=== PATIENT | female | born 1975 ===

== ENCOUNTER 2016-06-25 01:40 | Inpatient (IN) | payer MEDICAID ==
--- NOTE | 2016-06-25 01:51 | OBHP ---
Datetime: 03/11/2016 17:57 IP Adm Impression: , intrauterine ; No Active Labor; Intact Membranes IP Admit Plan: Observation/Evaluation; Discharge home Admit Comment, IP Provider: S: 40F @22.5wks pt reports crampy-type pain along lower abd associa polina with frequency and burning on urination, but denies fevers/diarrhea, chills, and took nothing ofr pain at home. She denies any ctx/VB/LoF, FM+. Last sex 2 months ago. Reports only drinking 3-4 bot tles of water a day. O: VE- closed/thick/high A/P: IUP @ 22.5wks signs and symptoms likely UTI and inadequate hydration. - UA, UCx - FHT/toco continuous - 2L LR bolus - Likely d/c home +/- antibiotics - d/w Dr Eligio Howell, Mireya DESAI I saw and examined patient at presentation. Agree with above plan. Eligio Pelvic Type - PN: Not Done Extremities - PN: Normal Abdomen - PN: Normal Back - PN: Not Done Breast - PN: Not Done Lungs - PN: Normal Heart - PN: Normal Thyroid - PN: Normal Neurologic - PN: Normal HEENT - PN: Normal General - PN: Normal FHR - Baseline A Provider: 125 Membranes, Provider: Intact Contraction Comments Provider: occ IP Hx Assessment: The History has been Reviewed and is Current EGA AdmitDate IP: 22.5 Vital Signs Provider: Reviewed IP Chief Complaint: Signs/symptoms UTI NICHD Variability Prov Fetus A: Moderate 6-25bpm FHR Category Provider Fetus A: Category I NICHD Decel Fetus A IP Provider: None Dilatation, Provider: closed Effacement, Provider: thick Station, Provider: high Genitourinary Exam: Normal DTRs - PN: Not Done
[2016-06-25] MEDS ORDERED: Lactated Ringer's 1,000 ML IV SCH ×3 (02:45→07:30)
[2016-06-25 03:18] LABS: BASO % 0.6 % (0.0-2.0); EOS % 0.6 % (0.0-4.0); HEMATOCRIT 33.7 % (34.0-47.0); LYMPH # 1.3 K/uL (1.0-4.3); LYMPH % 28.2 % (20.0-40.0); MEAN CORPUSCULAR HEMOGLOBIN 29.8 pg (27.0-31.0); MEAN CORPUSCULAR HGB CONC 34.2 g/dL (33.0-37.0); MEAN PLATELET VOLUME 8.7 fl (7.2-11.7); MONO # 0.5 K/uL (0.0-0.8); MONO % 11.2 % (0.0-10.0); NEUT # 2.8 K/uL (1.8-7.0); NEUT % 59.4 % (50.0-75.0); NRBC % 0.1 % (0.0-0.0); RED CELL DISTRIBUTION WIDTH 13.5 % (11.5-14.5); WHITE BLOOD COUNT 4.7 K/uL (4.8-10.8)
[2016-06-25 03:25] LABS: MEAN CELL VOLUME 87.2 fl (81.0-99.0)
[2016-06-25 07:44] VITALS: BMI 29.2
[2016-06-25 08:15] VITALS: BP 116/86; PULSE 81; RESP 12; TEMP 98.1; O2SAT 99
[2016-06-25] MEDS ORDERED: Oxytocin 30 units/LR 500ML 500 ML IV ONE (12:14)
--- NOTE | 2016-06-25 12:15 | OBPN ---
Datetime: 06/25/2016 12:12 IP Progress Impression: Reassuring heart rate IP Procedures: Scalp Electrode IP Progress Plan: Augmentation Contraction Comments Provider: q5min FHR - Baseline A Provider: 120s-130s IP Progress Note Comment: Patient without complaints. heart tracing reassuring. Start Pitocin augmentation. Maternal being and well-being reassuring at this time. Vital Signs Provider: Reviewed; Within Normal Limits NICHD Accel Fetus A IP Provider: 15X15 FHR Category Provider Fetus A: Category I NICHD Variability Prov Fetus A: Moderate 6-25bpm Dilatation, Provider: 1 Effacement, Provider: 80 Station, Provider: -1 NICHD Decel Fetus A IP Provider: None Datetime: 06/25/2016 03:11 Nitrazine Provider: Positive Membranes, Provider: Ruptured Amniotic Fluid Color, Provider: blood tinged
[2016-06-25] MEDS ORDERED: Bupivacaine HCl 0.25% PF (10 ml) Inj ONE (12:34)
[2016-06-25] MEDS ORDERED: Fentanyl/Bupivacaine HCl 250 ML EPI ONE (12:34)
[2016-06-25] MEDS ORDERED: Lidocaine 1% Inj (20ml) ONE (17:08)
[2016-06-25] MEDS ORDERED: Oxytocin 20 units in LR 0 ML IV ONE (17:09)
--- NOTE | 2016-06-25 17:18 | OBPN ---
Datetime: 06/25/2016 17:14 IP Progress Impression: Normal progression of labor; Reassuring heart rate IP Informed Consent Obtain: Vaginal Delivery IP Procedures: Sterile Vag Exam IP Progress Plan: Continue present management Contraction Comments Provider: q2min FHR - Baseline A Provider: 120s-130s IP Progress Note Comment: Progressing well. Anticipate . Both MWB/FWB reassuring at this time. Vital Signs Provider: Reviewed; Within Normal Limits NICHD Accel Fetus A IP Provider: 15X15 FHR Category Provider Fetus A: Category I NICHD Variability Prov Fetus A: Moderate 6-25bpm Dilatation, Provider: 10 Effacement, Provider: 100 Station, Provider: 2 NICHD Decel Fetus A IP Provider: None
[2016-06-25] MEDS ORDERED: Oxycodone/Acetaminophen 5/325 mg Tab PO PRN ×2 (18:01→20:17)
[2016-06-25] MEDS ORDERED: Benzocaine/Menthol SPRAY TOP PRN ×2 (18:01→20:17)
--- NOTE | 2016-06-25 18:17 | OBDS ---
DELIVERY PERSONNEL Delivery Doctor: Claire Del Valle MD Phlebotomy Director: Missy Alvarez RN Anesthesiologist: Tsering Vuong MD Resident: Magdalena Webb MATERNAL INFORMATION Delivery Anesthesia: Epidural Medications in Delivery: Pitocin Estimated Blood Loss (ml): 200 Placenta Cultured: No Maternal Complications: None Provider Comments: Normal spontaneous vaginal delivery. Patient delivered viable male with Apgars of 9 and 9 at [address]ta delivered spontaneously. Infant delivered via BEE position. Laceration repaired, as above. Uterus firm and appropriately hemostatic following delivery. patient tolerated delivery and repair well. No complications. Estimated blood loss 200 mL. LABOR SUMMARY EDC: 07/10/2016 00:00 No. Babies in Womb: 1 Attempted: No Labor Anesthesia: Epidural LABOR INFORMATION Reason for Induction: Not Applicable Onset of Labor: 06/25/2016 12:00 Complete Dilatation: 06/25/2016 17:10 Cervical Ripening Agents: Cytotec @ Oxytocin: Augmentation Group B Beta Strep: Negative Antibiotics # of Doses: N/A Antibiotics Time of Last Dose: N/A Steroids Given: None Reason Steroids Not Administered: Not Applicable MEMBRANES Membranes Rupture Method: Spontaneous Rupture of Membranes: 06/25/2016 00:40 Amniotic Fluid Color: Bloody Amniotic Fluid Amount: Small Amniotic Fluid Odor: Normal STAGES OF LABOR Stage 1 hrs: 5 Stage 1 min: 10 Stage 2 hrs: 0 Stage 2 min: 18 Stage 3 hrs: 0 Stage 3 min: 4 Total Time in Labor hrs: 5 Total Time in Labor min: 32 VAGINAL DELIVERY Episiotomy: None Laceration Extension: Second Degree Laceration Type: Perineal Laceration Repair: Yes Laceration Repair Note: Secondary midline perineal laceration. Area infiltrated with 1% lidocaine. L aceration repaired with 2. 0 Rapide without complication. Patient tolerated repair well. Initial Vag Sponge Count: 15 Final Vag Sponge Count: 15 Initial Vag Sharps Count: 1 Final Vag Sharps Count: 1 Sponge Count Correct: Yes Sharps Count Correct: Yes Count Comment: Laps 5 X-Ray Detectable Sponges 10 Instruments 15 Sharps 1 All count correct BABY A INFORMATION Infant Delivery Date/Time: 06/25/2016 17:28 Method of Delivery: Vaginal Born in Route : No : N/A Forceps: N/A Vacuum Extraction: N/A Shoulder Dystocia : No SHOULDER DYSTOCIA BABY A Infant Delivery Date/Time: 06/25/2016 17:28 PRESENTATION/POSITION BABY A Presentation: Cephalic Cephalic Presentation: Vertex Breech Presentation: N/A PLACENTA INFORMATION BABY A Placenta Delivery Time : 06/25/2016 17:32 Placenta Method of Delivery: Spontaneous Placenta Status: Delivered SCORES BABY A Heart Rate 1 min: >100 bpm Resp Effort 1 min: Good Cry Reflex Irritability 1 min: Cough or Sneeze or Pulls Away Muscle Tone 1 min: Active Motion Color 1 min: Body [place], Extremities Blue SCORE 1 MIN: 9 INFANT INFORMATION BABY A Gestational Age at Delivery: 37.6 Gestational Status: Term Infant Outcome : Liveborn Condition : Stable Sex: Male IDENTIFICATION/MEDS BABY A ID Band Number: [id number] ID Band Location: Left Leg; Left Arm Vitamin K Given : Not Given Erythromycin Given: Not Given WEIGHT/LENGTH BABY A Birthweight (gms): 3255 Infant Weight (lb): 7 Weight (oz): 3 CORD INFORMATION BABY A No. Cord Vessels: 3 Nuchal Cord : N/A Nuchal Cord Other: N/A True Knot: N/A Infant Cord pH Baby Arterial: N/A Infant Cord pH Baby Venous: N/A Cord Blood Taken: Yes Banking/Donate Info: N/A Suction: Mouth; Nose
[2016-06-26 07:23] LABS: HEMATOCRIT 32.5 % (34.0-47.0); MEAN CELL VOLUME 88.6 fl (81.0-99.0); MEAN CORPUSCULAR HEMOGLOBIN 29.2 pg (27.0-31.0); MEAN CORPUSCULAR HGB CONC 32.9 g/dL (33.0-37.0); RED CELL DISTRIBUTION WIDTH 13.5 % (11.5-14.5); WHITE BLOOD COUNT 8.3 K/uL (4.8-10.8)
--- NOTE | 2016-06-26 10:35 | OBPPN ---
Datetime: 06/26/2016 07:54 PP Pain Prov: Within normal limits PP Nausea Prov: Denies PP Flatus Prov: Yes PP BM Prov: No PP Breasts Prov: Normal PP Heart Prov: Normal PP Lungs Prov: Normal PP Abdomen/Uterus Prov: Normal PP Lochia Prov: Normal PP Vulva/Perineum Prov: Normal PP CVA Tenderness Prov: Normal PP Extremities Prov: Normal PP C/S Incision Prov: Not Applicable PP Progress Prov: Normal PP Comments Phys Exam Prov: Not acute distress No resp distress RRR, S1S2 VS WNL Abd: soft, uterus firm umb level, BS+ no calf tenderness Alert, oriented PP Impression Prov: Normal progression PP Plan Prov: Continue present management PP Progress Note Prov: PPD #1 Patient doing well on PPD1. Tolerating regular diet. +flatus, no BM, lochia = menses. OOB to bathr oom. Breast feeding, supplementing with bottle feeds. denies CP, SOB, calf pain, nausea or vomiting. O: see above A/P: day #1, normal progression -pain management: motrin -Encouraged . -Encourage Ambulation -Anticipated DC 06/27/16 Evgeny Mak PGY1 Patient was seen with the resident I agree with the encourage ambulation and regular diet motion a s needed and anticipate discharge in a.m. IP PP Procedures: None Vital Signs Provider PP: Reviewed; Within Normal Limits
--- NOTE | 2016-06-27 10:25 | OBPPN ---
Datetime: 06/27/2016 10:07 PP Pain Prov: Within normal limits PP Nausea Prov: Denies PP Flatus Prov: Yes PP BM Prov: No PP Heart Prov: Normal PP Lungs Prov: Normal PP Abdomen/Uterus Prov: Normal PP Lochia Prov: Normal PP CVA Tenderness Prov: Normal PP Extremities Prov: Normal PP C/S Incision Prov: Not Applicable PP Progress Prov: Normal PP Impression Prov: Normal progression PP Plan Prov: Continue present management PP Progress Note Prov: PPD 2 Patient doing well this AM, denies pain, tolerating PO diet, ambulating without difficulty, has fl atus, denies bowel movement, normal urine output. 15-20 min each breast. Patient has no complaints or concerns at this time. PE Cardiac: S1 S2 normal, no murmurs/rubs or gallops Lungs: CTABL Abd: bowel sounds present, uterus firm below umbilicus, mild tenderness to palpation Ext: no edema A: 40 yr on PPD 2 s/p P: -Continue present management -pain management -encouraged ambulation -encouraged adequate hydrationa and PO intake, Magdalena Nicole M.D. PGY-[address] Morrison: Patient evaluated independently and I agree with the above IP PP Procedures: None Vital Signs Provider PP: Reviewed; Within Normal Limits
[2016-06-27] MEDS ORDERED: Measles, Mumps, and Rubella Vaccine SC ONE (10:26)
--- NOTE | 2016-06-27 10:27 | OBDCSUM ---
Datetime: 06/27/2016 10:13 Discharged to, Provider: Home Follow up at, Provider: Joselin De La Rosa Disch Instr Activity: Normal activity; May be up to bathroom; May be up for meals; May Shower Disch Instr Diet: Regular Discharge Instructions, Provider: Routine instructions given Discharge Diagnosis, Provider: Term Delivered Discharge Time: 06/27/2016 12:00 Follow up in weeks, Provider: [facility] Disch Activity Restrictions: No exercising; No lifting; No sexual activity; Nothing in vagina - Inte rcourse, tampons, douche Discharge Comment, Provider: PPD 2 Patient doing well this AM, denies pain, tolerating PO diet, ambulating without difficulty, has fl atus, denies bowel movement, normal urine output. 15-20 min each breast. Patient has no complaints or concerns at this time. PE Cardiac: S1 S2 normal, no murmurs/rubs or gallops Lungs: CTABL Abd: bowel sounds present, uterus firm below umbilicus, mild tenderness to palpation Ext: no edema A: 40 yr on PPD 2 s/p P: -Discharge to home -Follow up with Joselin De La Rosa at [facility] in 6 weeks -Baby to see public health informatician in 2-3 days -Ibuprofen 600 mg PO Q6 PRN pain Magdalena Nicole M.D. PGY1 Datetime: 03/11/2016 21:14 Follow up at, Provider: OB Discharge Time: 06/27/2016 00:00 Follow up in weeks, Provider: 6 weeks
== END 2016-06-27 13:30 | disposition home or self-care (01) | DRG 372 ==
LOC: H.EROB2 01:40 → H.ERHOLD 02:44 → H.L&D 02:44 → H.OB/GYN 20:08
PROVIDERS: ADMIT Obstetrics & Gynecology Gynecology; ATTEND Obstetrics & Gynecology Gynecology
PROC: 0KQM0ZZ Repair Perineum Muscle, Open Approach (ICD-10-PCS; principal; 2016-06-25)
PROC: 10E0XZZ Delivery of Products of Conception, External Approach (ICD-10-PCS; 2016-06-25)
PROC: 4A1HXCZ Monitoring of Products of Conception, Cardiac Rate, External Approach (ICD-10-PCS; 2016-06-25)
DX: O70.1 Second degree perineal laceration during delivery (principal); O75.3 Other infection during labor; Z37.0 Single live birth; Z3A.37 37 weeks gestation of pregnancy

== ENCOUNTER 2017-12-11 10:12 | Inpatient (IN) | payer MEDICAID ==
[2017-12-08 22:56] VITALS: BMI 29.0
[2017-12-11] MEDS ORDERED: Lactated Ringer's 1,000 ML IV ONE (10:19)
[2017-12-11] MEDS ORDERED: Lactated Ringer's 1,000 ML IV SCH (10:30)
[2017-12-11] MEDS ORDERED: OXYTOCIN/0.9 % NS 20 UNIT/1,000 ML BAG IV ONE ×2 (10:31→10:32)
[2017-12-11 10:52] LABS: BASO % 0.2 % (0.0-2.0); EOS % 0.3 % (0.0-4.0); HEMOGLOBIN 12.4 g/dL (12.0-16.0); LYMPH % 15.1 % (20.0-40.0); MEAN CELL VOLUME 88.8 fl (81.0-99.0); MEAN CORPUSCULAR HGB CONC 33.7 g/dL (33.0-37.0); MEAN PLATELET VOLUME 9.3 fl (7.2-11.7); MONO # 0.4 K/uL (0.0-0.8); MONO % 6.3 % (0.0-10.0); NEUT # 5.2 K/uL (1.8-7.0); NEUT % 78.1 % (50.0-75.0); NRBC % 0.1 % (0.0-0.0); RBC 4.13 Mil/uL (3.80-5.20); RED CELL DISTRIBUTION WIDTH 13.6 % (11.5-14.5); WHITE BLOOD COUNT 6.6 K/uL (4.8-10.8)
--- NOTE | 2017-12-11 11:08 | OBHP ---
Datetime: 12/11/2017 11:03 IP Adm Impression: Term, intrauterine IP Admit Plan: Admit to unit; Initiate labor protocol Extremities - PN: Normal Abdomen - PN: Normal Back - PN: Normal Lungs - PN: Normal Heart - PN: Normal Neurologic - PN: Normal HEENT - PN: Normal General - PN: Normal FHR - Baseline A Provider: 130's Membranes, Provider: Bulging Contraction Comments Provider: irregular EGA AdmitDate IP: 38.4 Vital Signs Provider: Reviewed; Within Normal Limits IP Indication for Induction: Not Applicable IP Chief Complaint: Uterine contractions NICHD Variability Prov Fetus A: Moderate 6-25bpm NICHD Accel Fetus A IP Provider: 15X15 FHR Category Provider Fetus A: Category I NICHD Decel Fetus A IP Provider: None Dilatation, Provider: 8 Effacement, Provider: 100 Station, Provider: -1 Genitourinary Exam: Normal Datetime: 12/11/2017 10:56 Admit Comment, IP Provider: 42 yo at 38+4 wks w/ painful ctxns since 4am, also reports pink d/c, denies LOF and reports FM. FHT reactive. Pt admitted to L_D in labor. H_P dictated, "[id number]" (ES)
--- NOTE | 2017-12-11 11:08 | OBADHP ---
Datetime: 12/11/2017 11:03 Extremities - PN: Normal Abdomen - PN: Normal Back - PN: Normal Lungs - PN: Normal Heart - PN: Normal Neurologic - PN: Normal HEENT - PN: Normal General - PN: Normal FHR - Baseline A Provider: 130's Membranes, Provider: Bulging Contraction Comments Provider: irregular Vital Signs Provider: Reviewed; Within Normal Limits IP Chief Complaint: Uterine contractions NICHD Variability Prov Fetus A: Moderate 6-25bpm NICHD Accel Fetus A IP Provider: 15X15 FHR Category Provider Fetus A: Category I NICHD Decel Fetus A IP Provider: None Dilatation, Provider: 8 Effacement, Provider: 100 Station, Provider: -1 Genitourinary Exam: Normal EGA AdmitDate IP: 38.4 IP Adm Impression: Term, intrauterine IP Admit Plan: Admit to unit; Initiate labor protocol Datetime: 12/11/2017 10:56 Admit Comment, IP Provider: 42 yo at 38+4 wks w/ painful ctxns since 4am, also reports pink d/c, denies LOF and reports FM. FHT reactive. Pt admitted to L_D in labor. H_P dictated, "[id number]" (ES) Datetime: 12/08/2017 22:56 Comments, ACOG Physical Exam: General: NAD Chest: RRR, S1S2 present Lungs: CTA B/L Abdomen: Gravid , NT Ext: No pedal edema, No calf tenderness SVE: 2/50/-3, No active vaginal bleeding IP Hx Assessment: The History has been Reviewed and is Current
[2017-12-11] MEDS ORDERED: Fentanyl/Bupivacaine HCl 250 ML EPI ONE (12:14)
--- NOTE | 2017-12-11 13:33 | OBPN ---
Datetime: 12/11/2017 13:30 IP Progress Impression: Normal progression of labor IP Procedures: Artificial ROM; Sterile Vag Exam IP Progress Plan: Continue present management Membranes, Provider: Ruptured Amniotic Fluid Color, Provider: Clear Contraction Comments Provider: irregular FHR - Baseline A Provider: 120's IP Progress Note Comment: 42 at 38+4 wks in labor, s/p epidural AROM for clear fluid w/ pink d/c at 1328 FHT reassuring NICHD Accel Fetus A IP Provider: 15X15 FHR Category Provider Fetus A: Category I NICHD Variability Prov Fetus A: Moderate 6-25bpm Dilatation, Provider: 8 Effacement, Provider: 100 Station, Provider: -1 NICHD Decel Fetus A IP Provider: None; Variable Datetime: 12/11/2017 11:03 Vital Signs Provider: Reviewed; Within Normal Limits
[2017-12-11] MEDS ORDERED: Benzocaine/Menthol SPRAY TOP PRN (15:35)
[2017-12-11] MEDS ORDERED: Oxycodone/Acetaminophen 5/325 mg Tab PO PRN (15:35)
--- NOTE | 2017-12-11 16:14 | OBDS ---
DELIVERY PERSONNEL Nurse Cab Station Attendant Certified: sushila Delivery Doctor: Darnell Verde Nurse: sushila Command And Control Specialist: TONY Dee Anesthesiologist: Aniket Scientific Associate: sushila Resident: Bridgett MATERNAL INFORMATION Delivery Anesthesia: None Medications in Delivery: pitocin Estimated Blood Loss (ml): 100 Placenta Cultured: No Maternal Complications: None RN Comments: uneventful normal spontaneous delivery to baby boy; 9/9 with cord around the neck x 1 ; 2 degree lacerations repaired ; placenta delivered complete Provider Comments: Pt progressed to complete and pushed to deliver a viable male through marisol r fluid at 1524. Nuchal cord x1 reduced. Terminal meconium present. Apgars 9 and 9. Wt 3445 gms, 7#9.5. Baby placed on mother's abdomen. Cord doubly clamped and FOB cut the cord. Small second deg ree tear was repaired w/ 2-0 rapide and 3-0v. Pt and baby tolerated the procedure well. EBL 150mL Rectum intact. LABOR SUMMARY EDC: 12/21/2017 00:00 No. Babies in Womb: 1 Attempted: No Labor Anesthesia: Epidural LABOR INFORMATION Onset of Labor: 12/11/2017 04:00 Complete Dilatation: 12/11/2017 14:45 Oxytocin: na Group B Beta Strep: Negative Antibiotics # of Doses: 0 Antibiotics Time of Last Dose: 0 Steroids Given: None Reason Steroids Not Administered: Not Applicable MEMBRANES Membranes Rupture Method: Artificial Rupture of Membranes: 12/11/2017 13:00 Length of Rupture (hrs): 2.40 Amniotic Fluid Color: Clear Amniotic Fluid Amount: Moderate Amniotic Fluid Odor: Normal STAGES OF LABOR Stage 1 hrs: 10 Stage 1 min: 45 Stage 2 hrs: 0 Stage 2 min: 39 Stage 3 hrs: 0 Stage 3 min: -18 Total Time in Labor hrs: 11 Total Time in Labor min: 6 VAGINAL DELIVERY Episiotomy: None Laceration Extension: Second Degree Laceration Type: Perineal Laceration Repair: Yes Initial Vag Sponge Count: 5 Final Vag Sponge Count: 5 Initial Vag Sharps Count: 1 Final Vag Sharps Count: 1 Sharps Count Correct: Yes Count Comment: correct count BABY A INFORMATION Infant Delivery Date/Time: 12/11/2017 15:24 Method of Delivery: Vaginal Born in Route : No : N/A Forceps: N/A Vacuum Extraction: N/A Shoulder Dystocia : No SHOULDER DYSTOCIA BABY A Delivery Date/Time: 12/11/2017 15:24 PRESENTATION/POSITION BABY A Presentation: Cephalic Cephalic Presentation: Vertex Vertex Position: Left Occipital Anterior Breech Presentation: N/A PLACENTA INFORMATION BABY A Placenta Delivery Time : 12/11/2017 15:06 Placenta Method of Delivery: Spontaneous Placenta Status: Delivered SCORES BABY A Heart Rate 1 min: >100 bpm Resp Effort 1 min: Good Cry Reflex Irritability 1 min: Cough or Sneeze or Pulls Away Muscle Tone 1 min: Active Motion Color 1 min: Body [place], Extremities Blue SCORE 1 MIN: 9 Heart Rate 5 min: >100 bpm Resp Effort 5 min: Good Cry Reflex Irritability 5 min: Cough or Sneeze or Pulls Away Muscle Tone 5 min: Active Motion Color 5 min: Body [place], Extremities Blue SCORE 5 MIN: 9 INFANT INFORMATION BABY A Gestational Age at Delivery: 38.4 Gestational Status: Term Infant Outcome : Liveborn Infant Condition : Stable Sex: Male WEIGHT/LENGTH BABY A Infant Birthweight (gms): 3445 Weight (lb): 7 Infant Weight (oz): 9 CORD INFORMATION BABY A No. Cord Vessels: 3 Nuchal Cord : Around Neck x1, Tight Nuchal Cord Other: na True Knot: na Infant Cord pH Baby Arterial: na Infant Cord pH Baby Venous: na Cord Blood Taken: Yes Banking/Donate Info: na Infant Suction: None
--- NOTE | 2017-12-11 21:51 | HP ---
HISTORY OF PRESENT ILLNESS: This is a 42-year-old -0-0-2 at 38 weeks and 4 days with an EDC of 12/21/2017 by 12 week ultrasound, who presents with painful contractures that started around 4 a.m. The patient reports pink discharge, movement, and denies leaking of fluid. The patient received her care at [facility]. The patient speaks Nauruan and Cristo Lam RN, translated. 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 PPD was positive and chest x-ray was negative. PAST MEDICAL HISTORY: Healthy. PAST SURGICAL HISTORY: Liposuction and breast augmentation in 2007. MEDICATIONS: vitamins and acyclovir 400 mg every 8 hours for suppression from 36 weeks on. ALLERGIES: NO KNOWN DRUG ALLERGIES. FAMILY HISTORY: Noncontributory. SOCIAL HISTORY: The patient denies tobacco, alcohol, and illicit drug use. OBSTETRICAL HISTORY: In 04/2000, she underwent a vaginal delivery of a female weighing 7 pounds. In 06/2016, she underwent a vaginal delivery of a male infant weighing 7 pounds. 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 PHYSICAL EXAMINATION: VITAL SIGNS: Afebrile, vital signs stable. HEART: Regular rate and rhythm. LUNGS: Clear to auscultation bilaterally. ABDOMEN: Soft, nontender, gravid. GENITOURINARY: Vaginal exam, 8 cm with a bulging bag, -1 station at 9:50 a.m. External monitoring is baseline, is in the 130s with moderate variability and positive accelerations. Tocodynamometer irregular. Her periods are every 28 days. Menarche at 16. LABS: Her one-hour Glucola was 127 on 10/18/2017. On 05/08/2017, blood type A positive. On 10/26/2017, her AFP was negative for open neural tube defects. On 10/26/2017, antibody screen negative. On 11/23/2017, gonorrhea and chlamydia were negative. On 10/26/2017, her cystic fibrosis was negative, fragile X was negative. On 11/23/2017, her GBS was negative. There is no hepatitis B surface antigen seen and so that was ordered with her admitting labs. On 10/18/2017, her HIV was negative. On 10/26/2017, RPR was negative. On 05/03/2017, her SMA was reduced carrier risk and on 05/08/2017, her Rubella was immune. On 05/08/2017, her RPR was negative. The patient received her TDAP on 10/26/2017. On 11/23/2017, gonorrhea, chlamydia, and group B strep were negative. On 06/01/2015, her Pap smear was negative. HPV negative. Gonorrhea and chlamydia negative, this was on 05/31/2017. On 05/08/2017 is when her fragile X, SMA and cystic fibrosis were negative. Most recent labs, 05/08/2017 is when these labs were done where she is A positive, antibody screen negative. Hepa B surface antigen is negative. Herpes 2 is positive. Her hemoglobin electrophoresis is normal. HIV is nonreactive. Hepatitis C nonreactive. Varicella zoster is positive. Rubella immune. Her first trimester screen done on 06/08/2017 was negative. She had a Panorama done that was low risk, male fetus and that was done on 06/17/2017. ASSESSMENT AND PLAN: This is a 42-year-old G3, P 2-0-0-2 at 38 weeks and 4 days, in labor. heart tracing is reactive and reassuring. The patient desires an epidural, group B streptococcus negative. Ivory Patrick MD
[2017-12-12 07:14] LABS: BASO % 0.6 % (0.0-2.0); EOS # 0.1 K/uL (0.0-0.7); HEMOGLOBIN 11.3 g/dL (12.0-16.0); LYMPH # 1.5 K/uL (1.0-4.3); LYMPH % 19.2 % (20.0-40.0); MEAN CELL VOLUME 89.7 fl (81.0-99.0); MEAN CORPUSCULAR HEMOGLOBIN 30.6 pg (27.0-31.0); MEAN CORPUSCULAR HGB CONC 34.1 g/dL (33.0-37.0); MEAN PLATELET VOLUME 9.8 fl (7.2-11.7); MONO # 0.5 K/uL (0.0-0.8); MONO % 6.7 % (0.0-10.0); NEUT # 5.5 K/uL (1.8-7.0); NEUT % 72.5 % (50.0-75.0); NRBC % 0.1 % (0.0-0.0); RBC 3.7 Mil/uL (3.80-5.20); WHITE BLOOD COUNT 7.6 K/uL (4.8-10.8)
[2017-12-12] MEDS: Multivitamin With Minerals Tab PO SCH (08:23)
--- NOTE | 2017-12-12 10:49 | OBPPN ---
Datetime: 12/12/2017 08:31 PP Pain Prov: Within normal limits PP Nausea Prov: Denies PP Flatus Prov: Yes PP Breasts Prov: Not Done PP Heart Prov: Normal PP Lungs Prov: Normal PP Abdomen/Uterus Prov: Normal PP Lochia Prov: Normal PP Vulva/Perineum Prov: Not Done PP CVA Tenderness Prov: Normal PP Extremities Prov: Normal PP C/S Incision Prov: Not Applicable PP Progress Prov: Normal PP Impression Prov: Normal progression PP Plan Prov: Continue present management PP Progress Note Prov: 42 yo now , 38.4 wks, s/p 12/11/17 being evaluated on PPD1. Pt have n o acute overnight complains. Abdominal pain appropriately controlled with pain medications. She was a ble ambulate and void freely. Pt reports passing fatus, but no stool. Lochia is equal to menses. She is and using formula. PT denies fever, chills, diarrhea, nausea/vomiting, chest pain, dyspnea, and dizziness. O: VS: Stable, WNL GEN: NAD Cardio: RRR, S1S2, no murmurs Lungs: CTA B/L, no wheezing Abdomen: BS+, appropriated tendenrness, fundus at umbilicus, firm. Ext: No edema, calves non-tender Neuro/psych: AAOx3, no grossly focal deficits, preserved affect and mood. A/P: 42 yo now , 38.4 wks, s/p 12/11/17 being evaluated on PPD1 with normal pro gression. Pt remains afebrile, tolerating pain with medication. Tolerating diet. Continue with current management Encourage and ambulating Continue Ibuprofen 600mg q6 for mild-moderate pain. Keep monitoring lochia, fundus and vitals Anticipating tomorrow 12/13/17 jennifer Willis, PGY1 Patient seen and evaluated by me this am. Agree with above resident note. Continue pain meds as ne eded. encouraged. Acyclovir no longer needed. --Dr. Martinez Vital Signs Provider PP: Reviewed; Within Normal Limits
[2017-12-13] MEDS: Multivitamin With Minerals Tab PO SCH (08:22)
[2017-12-13] MEDS ORDERED: Influenza Vaccine (5 YR UP)/PF 60 MCG/0.5 ML SYR IM ONE (09:51)
--- NOTE | 2017-12-13 10:20 | OBDCSUM ---
Datetime: 12/13/2017 06:30 Discharged to, Provider: Home Follow up at, Provider: Dr. 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 Post- Summary: Patient is on PPD2 with normal progression. Patient passin g flatus but no BM yet. No maternal complications during post- period. Lochia less than menses. Tolerating regular diet, Fundus firm below umbilicus, able to ambulate w/o any difficulties, voiding well, denies fever, chills, [place], SOB, N/V, calf pain. CBC post-: 11.3/33.2 Discharge Instructions: Encourage PNV 1 tab po daily Ibuprofen 600mg 1 tab prn for mild-mod pain ER precautions: If excessive bleeding or fever without relief from medication, go to ED PT was urged if feeling sad, mood swing, depression, neglect of baby, suicidal thoughts, homicidal thought should go to ER or call 911 for help Follow up with [facility]/Dr. Aguilera in 4-6 wks for check up Case discussed with attending Herman Willis, PGY1 Contraception after Delivery: Not Planning to Use
--- NOTE | 2017-12-13 10:21 | OBPPN ---
Datetime: 12/13/2017 06:43 PP Pain Prov: Within normal limits PP Nausea Prov: Denies PP Flatus Prov: Yes PP BM Prov: No PP Breasts Prov: Not Done PP Heart Prov: Normal PP Lungs Prov: Normal PP Abdomen/Uterus Prov: Normal PP Lochia Prov: Normal PP Vulva/Perineum Prov: Not Done PP CVA Tenderness Prov: Normal PP Extremities Prov: Normal PP C/S Incision Prov: Not Applicable PP Progress Prov: Normal PP Impression Prov: Normal progression PP Plan Prov: Continue present management PP Progress Note Prov: Patient S _ E at bedside on PPD 2. Abdominal pain appropriately controlled wi th pain medications.Pt able ambulate and void freely. Pt reports passing fatus, but no BM. Lochia les s sebastian menses. She is and using formula. PT denies fever, chills, N/V/D, chest pain, dys pnea, and dizziness. VS: Stable, afebrile GEN: NAD Cardio: RRR, S1S2, no murmurs Lungs: CTA B/L Abdomen: Mild tenderness, BS +, No guarding or rigidity, Uterus below umbilicus Ext: No edema, calves non-tender Neuro/psych: AAOx3, preserved affect and mood. A/P: 42 yo now , 38.4 wks, s/p 12/11/17 being evaluated on PPD2 with normal pro gression. Continue with current management Encourage and ambulating Continue Ibuprofen 600mg q6 for mild-moderate pain. Anticipating today 12/13/17 Case discussed with attending Herman mora, PGY1 Patient seen and examined by me this am. Agree with above note. Patient for discharge home today w ith follow up in the office in 6 weeks. Continue Motrin for pain. --Dr. Martinez Vital Signs Provider PP: Reviewed; Within Normal Limits
[2017-12-13 18:07] VITALS: BP 92/58; PULSE 69; RESP 20; TEMP 98.2; O2SAT 100
== END 2017-12-13 12:02 | disposition home or self-care (01) | DRG 373 ==
LOC: H.EROB2 10:12 → H.L&D 10:19 → H.OB/GYN 18:09
PROVIDERS: ADMIT Obstetrics & Gynecology; ATTEND Obstetrics & Gynecology
PROC: 10E0XZZ Delivery of Products of Conception, External Approach (ICD-10-PCS; principal; 2017-12-11)
PROC: 0KQM0ZZ Repair Perineum Muscle, Open Approach (ICD-10-PCS; 2017-12-11)
PROC: 10907ZC Drainage of Amniotic Fluid, Therapeutic from Products of Conception, Via Natural or Artificial Opening (ICD-10-PCS; 2017-12-11)
PROC: 4A1HXCZ Monitoring of Products of Conception, Cardiac Rate, External Approach (ICD-10-PCS; 2017-12-11)
DX: O69.1XX0 Labor and delivery complicated by cord around neck, with compression, not applicable or unspecified (principal); O70.1 Second degree perineal laceration during delivery; O77.0 Labor and delivery complicated by meconium in amniotic fluid; Z3A.38 38 weeks gestation of pregnancy; Z37.0 Single live birth; O09.523 Supervision of elderly multigravida, third trimester; Z86.19 Personal history of other infectious and parasitic diseases

== ENCOUNTER 2018-01-16 21:40 | Emergency (ER) | payer MEDICAID ==
[2018-01-16 21:41] VITALS: BMI 29.0
[2018-01-16 22:47] VITALS: O2SAT 98
[2018-01-16] MEDS ORDERED: Sodium Chloride 0.9% 1,000 ML IV STA (23:50)
[2018-01-17 00:28] LABS: BASO % 0.5 % (0.0-2.0); EOS % 0.3 % (0.0-4.0); HEMOGLOBIN 12.4 g/dL (12.0-16.0); LYMPH # 1.3 K/uL (1.0-4.3); LYMPH % 17.3 % (20.0-40.0); MEAN CORPUSCULAR HEMOGLOBIN 29.8 pg (27.0-31.0); MEAN CORPUSCULAR HGB CONC 33.9 g/dL (33.0-37.0); MEAN PLATELET VOLUME 8.4 fl (7.2-11.7); MONO # 0.6 K/uL (0.0-0.8); MONO % 7.7 % (0.0-10.0); NEUT # 5.5 K/uL (1.8-7.0); NEUT % 74.2 % (50.0-75.0); NRBC % 0.1 % (0.0-0.0); RBC 4.16 Mil/uL (3.80-5.20); RED CELL DISTRIBUTION WIDTH 13.8 % (11.5-14.5); WHITE BLOOD COUNT 7.4 K/uL (4.8-10.8)
--- NOTE | 2018-01-17 00:39 | ED PDOC ---
History of Present Illness History of Present Illness: 42 year old female presents to the ED with body aches, headache, joint pains, low grade fever, chills and decreased appetite. She is five weeks a normal, spontaneous vaginal delivery. Patient took Tylenol today with no relief. Denies photophobia, nuchal rigidity and vomiting. PMD: Dr. Lydia Schultz HPI: Influenza Time Seen by Provider: 01/16/18 23:30 Chief Complaint: Flu-like Symptoms Chief Complaint (Provider): Flu-like Symptoms History Per: Patient Exam Limitations: no limitations Onset/Duration Of Symptoms: Days (x 1) Symptoms include: headache, bodyaches. denies: vomiting Past Medical History Reviewed: Historical Data, Nursing Documentation, Vital Signs Vital Signs: Last Vital Signs Temp 98.8 F 01/16/18 22:46 Pulse 104 H 01/16/18 22:46 Resp 16 01/16/18 22:46 BP 117/77 01/16/18 22:46 Pulse Ox 98 01/16/18 22:46 - Medical History PMH: No Chronic Diseases - Surgical History Surgical History: No Surg Hx - Family History Family History: States: Unknown Family Hx - Home Medications Home Medications: Ambulatory Orders Medication Instructions Recorded Ibuprofen [Motrin Tab] 600 mg PO Q6 PRN #25 tab 12/13/17 - Allergies Allergies/Adverse Reactions: Allergies Allergy/AdvReac Type Severity Reaction Status Date / Time No Known Allergies Allergy Verified 12/08/17 22:57 Review of Systems ROS Statement: Except As Marked, All Systems Reviewed And Found Negative Constitutional: Positive for: Fever (low grade), Chills, Other (body aches, joint pain and decreased appetite) Physical Exam - Reviewed Nursing Documentation Reviewed: Yes Vital Signs Reviewed: Yes - Physical Exam Appears: Positive for: Non-toxic, No Acute Distress Head Exam: Positive for: ATRAUMATIC, NORMAL INSPECTION, NORMOCEPHALIC Skin: Positive for: Normal Color, Warm, Dry Eye Exam: Positive for: EOMI, Normal appearance, PERRL Neck: Positive for: Normal, Painless ROM, Supple Cardiovascular/Chest: Positive for: Regular Rate, Rhythm. Negative for: Murmur Respiratory: Positive for: Normal Breath Sounds. Negative for: Respiratory Distress Gastrointestinal/Abdominal: Positive for: Normal Exam, Soft. Negative for: Tenderness Extremity: Positive for: Normal ROM. Negative for: Deformity Neurologic/Psych: Positive for: Alert, Oriented. Negative for: Motor/Sensory Deficits Medical Decision Making Medical Decision Makin:49 Impression: 42 year old female with flu like symptoms Initial Plan: --CMP --Lactic acid --Urine preg --Urine dip --CBC --NS IV --Tylenol 975 mg --Blood cx --UA --Influenza AB 01:42 --Labs reviewed and reveal no clinically significant abnormalities. Patient reports improvement in symptoms and is stable for discharge. Diagnosis is viral syndrome. Scribe Attestation: Documented by Reva Oliva, acting as a scribe for Parveen Wade MD Provider Scribe Attestation: All medical record entries made by the Scribe were at my direction and personally dictated by me. I have reviewed the chart and agree that the record accurately reflects my personal performance of the history, physical exam, medical decision making, and the department course for this patient. I have also personally directed, reviewed, and agree with the discharge instructions and disposition. - Laboratory Results Result Diagrams: 01/17/18 00:23 01/17/18 00:37 - ECG O2 Sat by Pulse Oximetry: 98 (RA) Pulse Ox Interpretation: Normal Disposition - Clinical Impression Clinical Impression: Viral syndrome - Patient ED Disposition Is Patient to be Admitted: No - Disposition Disposition: Routine/Home Disposition Time: 01:42 Condition: STABLE Additional Instructions: CALIN COKER, thank you for letting us take care of you today. Your provider was Parveen Wade MD and you were treated for FEVER,WEAKNESS. The emergency medical care you received today was directed at your acute symptoms. If you were prescribed any medication, please fill it and take as directed. It may take several days for your symptoms to resolve. Return to the Emergency Department if your symptoms worsen, do not improve, or if you have any other problems. Please contact your doctor or call one of the physicians/clinics you have been referred to that are listed on the Patient Visit Information form that is included in your discharge packet. Bring any paperwork you were given at discharge with you along with any medications you are taking to your follow up visit. Our treatment cannot replace ongoing medical care by a primary care provider outside of the emergency department. Thank you for allowing the [facility] team to be part of your care today. If you had an X-Ray or CT scan: A Radiologist will review the ED reading if any change in treatment is needed we will contact you. If you had a blood, urine, or wound culture: It will take several days for the results, if any change in treatment is needed we will contact you. If you had an STI test: It will take 48 hours for the results. Please call after 1 week if you have not heard back. Instructions: Viral Syndrome (DC) Forms: [employer] (Greenlandic) Print Language: BURUNDIAN
[2018-01-17 00:44] LABS: SQUAMOUS EPITHIAL 1 /hpf (0-5); URINE BACTERIA RARE (<OCC); URINE BILIRUBIN NEGATIVE (NEGATIVE); URINE BLOOD SMALL (NEGATIVE); URINE CLARITY SLIGHTY-CLOUDY (Clear); URINE COLOR YELLOW (YELLOW); URINE GLUCOSE (UA) NEG (Normal); URINE LEUKOCYTE ESTERASE NEG Leu/uL (Negative); URINE PROTEIN NEGATIVE (NEGATIVE); URINE UROBILINOGEN 0.2-1.0 mg/dL (0.2-1.0)
[2018-01-17 00:49] LABS: ALB/GLOB RATIO 1.1 (1.0-2.1); ALBUMIN 3.9 g/dL (3.5-5.0); ALT/SGPT 43 U/L (9-52); AST/SGOT 26 U/L (14-36); BLOOD UREA NITROGEN 10 mg/dl (7-17); CALCIUM 8.7 mg/dL (8.4-10.2); GFR NON-AFRICAN AMERICAN > 60
[2018-01-17 01:52] VITALS: BP 106/63; PULSE 82; RESP 17; TEMP 98.6
== END 2018-01-17 01:51 | disposition home or self-care (01) ==
LOC: H.ER 21:40
DX: B34.9 Viral infection, unspecified (principal)
CPT/HCPCS: 80053; 81003; 81025; 83605; 85025; 87040; 87804; 99283; J7030

== ENCOUNTER 2018-06-13 23:13 | Emergency (ER) | payer MEDICAID ==
[2018-06-13 23:13] VITALS: BMI 29.0
--- NOTE | 2018-06-14 00:17 | ED PDOC ---
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 Patient reports fever, bodyaches, sore throat, and chills. Took Tylenol at 20:00. Denies ear pain, congestion, vomiting, cough, chest pain, shortness of breath, palpitations, abdominal pain, changes in bowel movements, urinary symptoms, recent travel, sick contacts. Past Medical History Reviewed: Historical Data, Nursing Documentation, Vital Signs Vital Signs: Last Vital Signs Temp 98.1 F 06/13/18 23:16 Pulse 109 H 06/13/18 23:16 Resp 16 06/13/18 23:16 BP 120/68 06/13/18 23:16 Pulse Ox 99 06/13/18 23:16 - Medical History PMH: No Chronic Diseases - Surgical History Surgical History: No Surg Hx - Family History Family History: States: Unknown Family Hx - Living Arrangements Living Arrangements: With Family - Home Medications Home Medications: Ambulatory Orders Medication Instructions Recorded Ibuprofen [Motrin Tab] 600 mg PO Q6 PRN #25 tab 12/13/17 Oseltamivir Cap [Tamiflu] 75 mg PO BID #9 cap 06/14/18 - Allergies Allergies/Adverse Reactions: Allergies Allergy/AdvReac Type Severity Reaction Status Date / Time No Known Allergies Allergy Verified 06/13/18 23:16 Review of Systems ROS Statement: Except As Marked, All Systems Reviewed And Found Negative Constitutional: Positive for: Fever ENT: Positive for: Throat Pain Physical Exam - Reviewed Nursing Documentation Reviewed: Yes Vital Signs Reviewed: Yes - Physical Exam Appears: Positive for: Well, Non-toxic, No Acute Distress Head Exam: Positive for: ATRAUMATIC, NORMAL INSPECTION, NORMOCEPHALIC Skin: Positive for: Normal Color Eye Exam: Positive for: Normal appearance ENT: Positive for: Normal ENT Inspection Cardiovascular/Chest: Positive for: Regular Rate, Rhythm Respiratory: Positive for: Normal Breath Sounds Gastrointestinal/Abdominal: Positive for: Normal Exam Back: Positive for: Normal Inspection Extremity: Positive for: Normal ROM Neurological/Psych: Positive for: Awake, Alert, Oriented (x3) - ECG O2 Sat by Pulse Oximetry: 99 - Progress ED Course And Treament: -influenza -rapid strep -upreg -ibuprofen PO Patient educated on findings, will give Tamiflu for influenza-like symptoms Advised Tylenol/Ibuprofen PRN fever/pain Increase fluid intake Rest Follow up PMD within 2-3 days Return precautions given Disposition - Clinical Impression Clinical Impression: Influenza-like symptoms - Patient ED Disposition Is Patient to be Admitted: No Counseled Patient/Family Regarding: Studies Performed, Diagnosis, Need For Followup, Rx Given - Disposition Disposition: Routine/Home Disposition Time: 03:03 Condition: IMPROVED Prescriptions: Oseltamivir Cap [Tamiflu] 75 mg PO BID #9 cap Instructions: Viral Syndrome (DC) Print Language: MALIAN
[2018-06-14 04:58] VITALS: BP 99/59; PULSE 93; RESP 16; TEMP 98.3; O2SAT 97
== END 2018-06-14 03:36 | disposition home or self-care (01) ==
LOC: H.ER 23:13
DX: J11.1 Influenza due to unidentified influenza virus with other respiratory manifestations (principal)

== ENCOUNTER 2018-07-17 12:04 | Emergency (ER) | payer OTHER, MEDICAID ==
[2018-07-17 12:04] VITALS: BMI 29.0
[2018-07-17 12:13] VITALS: O2SAT 98
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
[2018-07-17 13:31] LABS: BASO % 0.8 % (0.0-2.0); HEMOGLOBIN 12.3 g/dL (12.0-16.0); LYMPH # 1.8 K/uL (1.0-4.3); LYMPH % 41.4 % (20.0-40.0); MEAN CELL VOLUME 88.4 fl (81.0-99.0); MEAN CORPUSCULAR HEMOGLOBIN 28.8 pg (27.0-31.0); MEAN CORPUSCULAR HGB CONC 32.5 g/dL (33.0-37.0); MEAN PLATELET VOLUME 7.7 fl (7.2-11.7); MONO # 0.3 K/uL (0.0-0.8); MONO % 7.3 % (0.0-10.0); NEUT # 2.2 K/uL (1.8-7.0); NEUT % 49.5 % (50.0-75.0); RBC 4.27 Mil/uL (3.80-5.20); RED CELL DISTRIBUTION WIDTH 13.9 % (11.5-14.5); WHITE BLOOD COUNT 4.4 K/uL (4.8-10.8)
[2018-07-17 13:44] LABS: BLOOD UREA NITROGEN 13 mg/dl (7-17); CALCIUM 9.2 mg/dL (8.4-10.2); GFR NON-AFRICAN AMERICAN > 60
[2018-07-17] MEDS ORDERED: Iohexol 300 100 ML IJ ONE (13:58)
[2018-07-17] MEDS ORDERED: Sodium Chloride 0.9% 50 ML IV ONE (13:58)
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
[2018-07-17 15:47] VITALS: BP 132/72; RESP 16; TEMP 98
--- NOTE | 2018-07-17 18:59 | CARD ---
APPROVED REPORT Date of service: 07/17/2018 EKG Measurement Heart [id number] <Conclusion> Normal sinus rhythm Normal ECG
[2018-07-17 19:44] VITALS: PULSE 75
== END 2018-07-17 15:55 | disposition home or self-care (01) ==
LOC: H.ER 12:04
DX: M54.2 Cervicalgia (principal); M62.838 Other muscle spasm; V49.49XA Driver injured in collision with other motor vehicles in traffic accident, initial encounter
CPT/HCPCS: 71260; 72125; 80048; 81025; 85025; 93005; 96374; 99284; J1885; Q9967